=== PATIENT | male | born 1980 | race Caucasian/White ===

== ENCOUNTER → 2017-04-27 | Outpatient (CLI) | payer OTHER ==
[~2017-04-27] MED LIST: FLUT0.15 NAE
--- NOTE | 2017-04-27 15:43 | DIAGNOSTIC IMAGING REPORT ---
CT OF THE SINUSES WITHOUT CONTRAST FUSION PROTOCOL CLINICAL HISTORY: Chronic sinusitis. COMPARISON STUDY: No previous studies for comparison. TECHNIQUE: Axial unenhanced images of the sinuses were obtained according to the fusion protocol. Coronal reformats were viewed. FINDINGS: Visualized portions of the intracranial contents are unremarkable on this unenhanced exam. There are a few opacified left mastoid air cells. There is no bony destruction. Orbits are unremarkable. Globes are intact. Note is made of mild rightward deviation of the nasal septum with mild spur formation. Nasal septum is intact. Cribriform plate is intact. There is mild mucosal thickening of the ethmoid sinuses. Major drainage pathways, including the ostiomeatal complexes, are patent. IMPRESSION: 1. Mild mucosal thickening of the ethmoid sinuses. Patent major drainage pathways with no CT evidence of acute sinusitis. 2. Mild rightward deviation of the nasal septum with spur formation. Electronically signed by: Fabián Moreno M.D. 04/27/2017 3:41 PM Dictated Date/Time: 04/27/2017 3:36 PM
== END | disposition home or self-care (01) ==
LOC: C.CTS 15:11
DX: J32.9 Chronic sinusitis, unspecified (principal)

== ENCOUNTER → 2017-05-27 | Outpatient (CLI) | payer OTHER ==
--- NOTE | 2017-05-28 06:47 | PAP/PSG TECHNICIAN REPORT ---
[facility] Risk Management Manager Polysomnogram Report Study name: None Report date: 05/28/2017 Study date: 05/27/2017 Referring Physician: DR. GEOR[place] YANCEY Name: ALMA ROSA GALICIA Interpreting Physician: Erasmo Villarreal D.O. Date of : 1980 Risk Management Manager: Ant Short [facility]. Sex: Male Age: 37 StudyType: PSG Weight: 201 lbs Height: 37 years, Height 5' 7" BMI: 31.48 Medications: NONE LISTED Patient History PATIENT HAS HISTORY OF LOUD SNORING, EXCESSIVE DAYTIME SLEEPINESS, LIMB MOVEMENTS AT NIGHT AND BREATHING PAUSES. HE GENERALLY DOES NOT FEEL RESTED UPON AWAKENING. HE IS HERE TODAY FOR AN EVALUATION FOR [place]. ESS = 7 RM 3 Parameters Monitored NPSG: E1-M2, E2-M1, Fp1-M2, Fp2-M1, F3-M2, F4-M2, F4-M1, C3-M2, C4-M2, C4-M1, O1-M2, O2-M2, O2-M1, T3-M2, T4-M1, P3-M2, P4-M1, CHIN1, CHIN2, HR, EKG, Legs, PFLOW, SNOR, FLOW, CFLOW, Tidal Volume, THOR, ABDO, SpO2, PLTH, CPRESS, ETCO2 Wave, ETCO2, pH Sleep Architecture Sleep Stages Time at Lights Off 8:34:19 PM STAGES Time (min.) TST (%) Time at Lights On 5:28:19 AM Wake 84.5 -- Total Recording Time (TRT) 534.50 min. N1 20.0 4 Total Sleep Period (TSP) 477.5 min. N2 258.0 57 Total Sleep Time (TST) 449.5min. N3 45.0 10 Awake Time 85.0 min. REM 126.5 28 Wake after Sleep Onset 28.5 min. Sleep Efficiency (SE) 84 % Sleep Onset Latency (ROBB) 56.0 min. Number of Stage 1 Shifts None Awakenings 21 Stage Changes 84 Number of REM periods 7 REM 126.5 28 REM Latency 70.0 min. NREM 323.0 72 Body Position Analysis Supine Right Left Side Prone Vertical Total Sleep Time (min.) 258.9 245.7 0.0 245.68 0.0 0.0 Total Sleep Time (%) 45% 55% 0% 55 0% N/A% Total Sleep Time REM (min.) 49.0 77.5 0.0 None 0.0 0.0 Total Sleep Time NREM (min.) 154.8 168.2 0.0 None 0.0 0.0 Intermittent Wake (min.) 55.1 29.4 0.0 None 0.0 0.0 Total Sleep Period (%) 46% None None None None None Arousals Myoclonus (PLM) * Events Count Index Events Count Index Spontaneous 34 5 Events Awake (PLMW) 115 81.7 Respiratory 11 1.5 Events Asleep w/ Arousal (PLMA) 16 2.1 PLM 15 2 Events Asleep w/o Arousal (PLMS) 73 9.7 Snoring 1 0 Total Asleep 89 11.9 Total 61 8 Total 204 23 Respiratory Analysis * CA OA MA CH H RERA Total Count 0 0 0 0 4 11 4 Index 0.0 0.0 0.0 0 0.5 1 2.0 Mean Duration 0.0 0.0 0.0 0.00 22.9 13.6 16.1 Longest Duration 0.0 0.0 0.0 0.00 0.0 16.4 27.7 Respiratory Event Summary Total Supine ~Supine Right Left Prone REM NREM Apneas Count 0 0 0 0 N/A N/A 0 0 Index 0.0 0 0 0.0 N/A N/A 0 0 Hypopneas (4% Desat) Count 4 2 2 2 N/A N/A 0 4 Index 0.5 0.6 0 0.5 N/A N/A 0.0 0.7 Apneas & All Hypopneas Count 4 2 2 2 N/A N/A 0 4 Index 0.5 1 0 0 N/A N/A 0.0 0.7 Respiratory Events (Rice Farmer+All Hyp+RERA) Count 4 11 4 4 N/A N/A 0 4 Index 2.0 3 1 1.0 N/A N/A 0.0 2.8 Respiratory Related Arousal Count 11 11 2 2 N/A N/A 0 11 Index 1.5 3 0 0 N/A N/A 0 2 Snoring Analysis Supine Right Left Prone REM NREM Total Snore duration 1.8 min Snores count 20 37 N/A N/A 21 36 57 Snore mean duration 1.9 Sec Snores index 6 9 N/A N/A 10.0 6.7 7.6 TST with snoring (%) 0.4% Desaturation Event Summary: Minimum %SpO2 Event Count Mean/Min/Max Duration(sec.) Desaturation Index % Time In Bed > 90 4 32.4 / 18.5 / 47.5 0.5 100.0 86 - 90 0 N/A 0.0 0.0 81 - 85 0 N/A 0.0 0.0 76 - 80 0 N/A 0.0 0.0 71 - 75 0 N/A 0.0 0.0 66 - 70 0 N/A 0.0 0.0 61 - 65 0 N/A 0.0 0.0 56 - 60 0 N/A 0.0 0.0 51 - 55 0 N/A 0.0 0.0 < 50 0 N/A 0.0 0.0 Total REM NREM Awake <50% 0.0 min. 0.0 min. 0.0 min. 0.0 min. 51 - 60% 0.0 min. 0.0 min. 0.0 min. 0.0 min. 61 - 70% 0.0 min. 0.0 min. 0.0 min. 0.0 min. 71 - 80% 0.0 min. 0.0 min. 0.0 min. 0.0 min. 81 - 90% 0.0 min. 0.0 min. 0.0 min. 0.0 min. 91 - 100% 532.5 min. 126.5 min. 323.0 min. 83.0 min. Average 95 95 95 95 Minimum SpO2 92 93 92 92 Desaturation Event Index 0.4 0.0 0.7 0.0 # Desat. Events below 89% N/A N/A N/A N/A Time(%) with Saturation below 89% 0.0 0.0 0.0 0.0 Time(min.) with Saturation below 89% 0.0 0.0 0.0 0.0 Time (mins) REM (mins) NREM (mins) % of TST SpO2 Below 90% N/A N/A NN/A 0.0 SpO2 Below 88% 0 0 0 0 Heart Rate Analysis Min (bpm) Max (bpm) Average (bpm) Awake 35 127 69 NREM 39 90 52 REM 40 85 51 Overall 39 90 52 Supplemental O2 Values Minimum O2 level: None Value Start Time End Time Risk Management Manager Comments Mr. Galicia slept in the right and supine positions. No cardiac arrhythmia noted. Leg movements noted. No bruxism noted. Snoring was noted and scored as a 2 on a scale of 1 through 5. (0=no snoring, 5=snoring loud enough to be heard through a closed door or down the raphael way) Mr. Galicia awoke to use the restroom 0 times during the night. Mr. Galicia stated I did not sleep as well as I do when I am in my own bed. The final report will be interpreted and signed by a sleep physician. The completed physician report will then be placed in the patient medical record. Therapy (cm H2O) 0 TIB (min.) 534.0 TST (min.) 449.5 Sleep Onset (min.) 56.0 REM Onset From Sleep (min.) 70.0 Sleep Efficiency % 84 Wakefulness (%) 16 Wakefulness (min.) 85.0 NREM 1 (%) 4 NREM 1 (min.) 20.0 NREM 2 (%) 57 NREM 2 (min.) 258.0 NREM 3 (%) 10 NREM 3 (min.) 45.0 REM (%) 28 REM (min.) 126.5 # Arousals 61 Arousal Index 8 # Snore 57 Snore Index 7.6 AHI 0.5 AHI Supine 1 AHI Non-Supine 0 NREM AHI 0.7 REM AHI 0.0 RDI 2.0 # Obstructive Apnea 0 # Central Apnea 0 # Mixed Apnea 0 # Hypopneas 4 RERAs 11 Total Respiratory Events 15 Time Below SpO2 89% (min.) 0.0 Mean NREM SpO2 (%) 95 Mean REM SpO2 (%) 95 Mean Sleep SpO2 (%) 95 Min NREM SpO2 (%) 92 Min REM SpO2 (%) 93 Position Supine (min.) 258.9 Position Non-supine (min.) 245.7 LM Index Sleep 11.9 LM Index NREM 11.7 LM Index REM 12.3 Mean Heart Rate (bpm) 52 Min Heart Rate (bpm) 39
--- NOTE | 2017-05-29 07:22 | Sleep Study ---
Sleep Study Report Date of Service: 05/27/2017 Sleep Study Report Clinical data: Patient is a 37-year-old male with a history of snoring, excessive daytime somnolence, observed nocturnal pauses in breathing, and limb movements at night. He has an [place] score of 7 out of a possible 24. His BMI is 31.48. This was an in-lab diagnostic sleep study. Sleep architecture: The total sleep. Was 477.5 minutes. The total sleep time was 449.5 minutes. The sleep efficiency was mildly reduced at 84 percent. His sleep latency was prolonged to 56 minutes. Wake after sleep onset was 28.5 minutes. REM latency was normal at 70 minutes. Sleep consisted of stage N1 4 percent, stage N2 57 percent, stage N3 10 percent , stage REM 28 percent. Arousal data: Patient had a total of 61 arousals including 34 spontaneous arousals, 11 respiratory arousals, 15 PLM arousals, and 1 snoring arousal. The arousal index was 8. PLM data: Patient had 89 periodic limb movements of sleep for an index of 11.9. There were 16 arousals associated with limb movements for a PLM arousal index of 2.1. Respiratory data: Patient had a total of only 4 respiratory events, all hypopneas. Hypopneas were scored according to the 4 percent desaturation rule. There were no apneas. He did have 11 RERAS. The mean duration of hypopneas was 22.9 seconds. The apnea-hypopnea index is normal at 0.5 events per hour. These results are indicative of no significant sleep apnea. Oximetry data: The average saturation for the entire night was 95 percent. The minimum saturation was 92 percent. EKG: The underlying cardiac rhythm was normal sinus. Cardiac rate ranged from 39 to 90 beats per minute. The average heart rate was 52 beats per minute. Quarryman comments patient slept in the right and supine positions. No cardiac arrhythmias noted. Leg movements noted. No bruxism noted. Snoring was noted and scored as a 2 on a scale of 1 through 5. Impressions: 1. No evidence of sleep apnea 2. Primary snoring 3. Periodic limb movement disorder-mild Comments: The patient had a mildly decreased sleep efficiency. This was related to the fact it took him 56 minutes to initiate sleep. After that his sleep was overall well consolidated. He had otherwise normal sleep architecture. There was no sleep apnea of significance. There were mild number of limb movements but these are unlikely to be significantly giving him symptoms. There were few arousals associated with limb movements. Follow-up is deferred to Dr. Cedeño who referred the patient. Copies To 1: Zenaida Trinh M.D.; Erasmo Villarreal DO; David Cedeño MD
== END | disposition home or self-care (01) ==
LOC: C.NEUR 20:00
DX: G47.33 Obstructive sleep apnea (adult) (pediatric) (principal); J35.1 Hypertrophy of tonsils